=== PATIENT | female | born 1990 | race Caucasian/White ===

== ENCOUNTER 2020-02-16 19:00 | Emergency (ER) | payer OTHER, SELFPAY ==
[2020-02-16 19:03] VITALS: BP 121/70; PULSE 89; RESP 16; TEMP 37; O2SAT 100
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
[2020-02-16] MEDS: TETANUS,DIPHTHERIA,AC PERTUSSIS ADULT (0.5 ML) BOOSTRIX IM (20:35)
== END 2020-02-16 20:36 | disposition home or self-care (01) ==
PROVIDERS: Emergency Provider Emergency Medicine; PCP Advanced Practice Midwife
DX: T25.012A Burn of unspecified degree of left ankle, initial encounter (principal); X16.XXXA Contact with hot heating appliances, radiators and pipes, initial encounter; Z23 Encounter for immunization
CPT/HCPCS: 90471; 90715; 99283

== ENCOUNTER 2020-02-20 10:48 | Outpatient (CLI) | payer OTHER, SELFPAY ==
[2020-02-20 14:48] LABS: Blood Urea Nitrogen 10 mg/dL (7-17); Calcium 8.8 mg/dL (8.4-10.2); Carbon Dioxide 25 mmol/L (22-30); Chloride 102 mmol/L (98-107); Estimated Glomerular Filt Rate > 60; Glucose 93 mg/dL (65-105); Potassium 3.9 mmol/L (3.4-5.0); Sodium 137 mmol/L (137-145)
== END 2020-02-20 10:49 ==
LOC: ANHSURGERY 08-04 10:48
PROVIDERS: Anesthesiology; PCP Advanced Practice Midwife; Visit Provider Plastic Surgery
DX: Z01.812 Encounter for preprocedural laboratory examination (principal); Z51.81 Encounter for therapeutic drug level monitoring; Z79.899 Other long term (current) drug therapy
CPT/HCPCS: 36415; 80048

== ENCOUNTER 2020-02-24 00:59 | Outpatient (CLI) | payer OTHER, SELFPAY ==
[2020-02-24 19:08] LABS: SARS-CoV-2 RNA PCR Negative
== END 2020-02-24 01:00 | disposition home or self-care (01) ==
LOC: ANHCOVIDDT 01:00
PROVIDERS: PCP Advanced Practice Midwife; Visit Provider Plastic Surgery
DX: Z01.812 Encounter for preprocedural laboratory examination (principal); Z11.59 Encounter for screening for other viral diseases
CPT/HCPCS: 87635; C9803; U0003

== ENCOUNTER 2020-02-26 01:11 | Day surgery (SDC) | payer OTHER, SELFPAY ==
[2020-02-19 10:40] VITALS: BMI 29.7
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
--- NOTE | 2020-02-26 07:15 | WPDHPUPDATE1 ---
History and Physical Update Update Date/Time: 02/26/20 07:15 History and Physical has been reviewed, including an updated exam of the patient. There are NO changes in the patient's condition. Risks, benefits, and alternatives have been discussed and questions answered. Patient agrees to proceed with procedure.
[2020-02-26 10:00] VITALS: BP 121/54; PULSE 78; RESP 16; TEMP 36.7; O2SAT 99
[2020-02-26] MEDS: LACTATED RINGERS 1,000 ML 30 ML IV CONT (10:25)
--- NOTE | 2020-02-26 10:42 | WPDANESEPPF ---
Anes - Initial Pre Proc Eval Procedure: Operation Date: 02/26/20 11:30 Proposed Procedures p Burn Wound Debridement, Full Thickness Skin Graft Right Leg - Jovan Magana MD Date/Time: 02/26/20 10:42 Surgeon: Jovan Magana MD Pre Op Diagnosis: Burn Wound Right Leg Patient Data Age: 29 Gender: F Height: 5 ft 7 in Weight: 92.4 kg Last Vital Signs Temp 36.7 C 02/26/20 10:00 Pulse 78 02/26/20 10:00 Resp 16 02/26/20 10:00 BP 121/54 L 02/26/20 10:00 Pulse Ox 99 02/26/20 10:00 Allergies Allergy/AdvReac Type Severity Reaction Status Date / Time Penicillins Allergy Severe Swelling Verified 02/26/20 10:06 hydrocodone AdvReac Mild SWEATING/N/ Verified 02/26/20 10:06 V Home Medications Medication Instructions Recorded Confirmed Type cephalexin 500 mg PO Q6H 02/16/20 02/26/20 History doxycycline hyclate 100 mg PO Q12H 10 Days #20 cap 02/16/20 02/26/20 Rx silver sulfadiazine [Silvadene] 1 applic TOPICAL BID #1000 gm 02/16/20 02/26/20 Rx albuterol sulfate [ProAir HFA] 1 inh INHALATION QID PRN 02/19/20 02/26/20 History spironolactone 100 mg PO DAILY 02/19/20 02/26/20 History Patient hx anesthesia problems: none Family hx anesthesia problems: none PMFSH Past Medical History Medical History (Updated 02/26/20 @ 10:43 by Neptali Sanchez MD) Asthma Obesity Surgical History Surgical History (Updated 02/26/20 @ 10:43 by Neptali Sanchez MD) History of section Family History Family History Grandparent Carcinoma of colon Mother Family history of malignant neoplasm of breast in first degree relative Other Diabetes mellitus Social History Social History Smoking status: Never smoker Alcohol intake: current Drinks per week: 1 Gender identity (if verbalized by the patient): Female Spiritual care concerns: No Anes - Eval Final PreProcedure Day of Procedure 02/26/20 10:42 Patient weight: obese Heart: regular rate and rhythm Lungs: clear to auscultation Airway: Mallampati scale class 1 Neurological: alert and oriented Last oral intake: >/= 8 hours ASA classification: II Emergent: no Anesthetic plan: proceed Anesthesia type and monitoring: general LMA and standard monitoring Informed Consent: The patient's anesthetic plan and its attendant risks and benefits were discussed with the patient/family/POA. Questions were solicited and answers provided to the satisfaction of the patient/family/POA.
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
--- NOTE | 2020-02-26 11:06 | WPDHPUPDATE1 ---
History and Physical Update Update Date/Time: 02/26/20 11:06 History and Physical has been reviewed, including an updated exam of the patient. There are NO changes in the patient's condition. Risks, benefits, and alternatives have been discussed and questions answered. Patient agrees to proceed with procedure.
== END 2020-02-26 11:28 | disposition home or self-care (01) ==
PROVIDERS: PCP Advanced Practice Midwife; Visit Provider Plastic Surgery
DX: T24.301A Burn of third degree of unspecified site of right lower limb, except ankle and foot, initial encounter (principal); X18.XXXA Contact with other hot metals, initial encounter; Z53.8 Procedure and treatment not carried out for other reasons
CPT/HCPCS: A9270; J0171; J7120

== ENCOUNTER → 2021-03-22 01:59 | Outpatient (CLI) | payer OTHER, SELFPAY ==
[2021-03-22 17:39] LABS: SARS-CoV-2 RNA PCR Negative
== END ==
PROVIDERS: PCP Advanced Practice Midwife; Visit Provider Obstetrics & Gynecology
DX: Z01.812 Encounter for preprocedural laboratory examination (principal); Z20.822 Contact with and (suspected) exposure to COVID-19
CPT/HCPCS: C9803; U0003; U0005

== ENCOUNTER 2021-03-25 01:04 | Day surgery (SDC) | payer OTHER, SELFPAY ==
[2021-03-21 15:27] VITALS: BMI 31.7
[2021-03-25] VITALS (9 sets, daily range): BP systolic 99–136; BP diastolic 50–69; PULSE 62–84; RESP 12–20; TEMP 36.6–36.8; O2SAT 96–99; BMI 32.9
[2021-03-25] MEDS: LACTATED RINGERS 1,000 ML 30 ML IV CONT ×3 (11:30→17:03)
[2021-03-25] MEDS: ACETAMINOPHEN 500 MG TABLET 1000 MG PO (11:31)
[2021-03-25] MEDS: KETOROLAC 15 MG/ML VIAL (*BKC) IV PUSH (11:32)
--- NOTE | 2021-03-25 12:00 | WPDANESEPPF ---
Anes - Initial Pre Proc Eval Procedure: Operation Date: 03/25/21 13:00 Proposed Procedures p Diagnostic Laparoscopy, Bilateral Laparoscopic Salpingectomy, and Hysteroscopy with Endometrial Ablation - Hair Edwards MD Date/Time: 03/25/21 12:00 Surgeon: Hair Edwards MD Pre Op Diagnosis: sterilization Patient Data Age: 30 Gender: F Height: 1.7 m Weight: 95.3 kg Allergies Allergy/AdvReac Type Severity Reaction Status Date / Time Penicillins Allergy Severe Swelling Verified 03/25/21 11:15 THROAT, HIVES hydrocodone AdvReac Mild SWEATING/N/ Verified 03/25/21 11:15 V Home Medications Medication Instructions Recorded Confirmed Type doxycycline hyclate 100 mg PO Q12H 10 Days #20 cap 02/16/20 02/26/20 Rx albuterol sulfate [ProAir HFA] 1 inh INHALATION QID PRN 02/19/20 02/26/20 History Patient hx anesthesia problems: none Family hx anesthesia problems: none PMFSH Past Medical History Medical History (Updated 02/26/20 @ 10:43 by Neptali Sanchez MD) Asthma Obesity Surgical History Surgical History (Updated 02/26/20 @ 10:43 by Neptali Sanchez MD) History of section Family History Family History Grandparent Carcinoma of colon Mother Family history of malignant neoplasm of breast in first degree relative Other Diabetes mellitus Social History Social History Smoking status: Never smoker Alcohol intake: current Drinks per week: 1 Living arrangements: alone Gender identity (if verbalized by the patient): Female Spiritual care concerns: No Anes - Eval Final PreProcedure Day of Procedure 03/25/21 12:00 Patient weight: obese Heart: regular rate and rhythm Lungs: clear to auscultation and normal air movement Airway: Mallampati scale class II Neurological: alert and oriented Last oral intake: >/= 8 hours ASA classification: II Emergent: no Anesthetic plan: proceed Anesthesia type and monitoring: general ETT and standard monitoring Informed Consent: The patient's anesthetic plan and its attendant risks and benefits were discussed with the patient/family/POA. Questions were solicited and answers provided to the satisfaction of the patient/family/POA.
--- NOTE | 2021-03-25 12:07 | WPDHPUPDATE1 ---
History and Physical Update Update Date/Time: 03/25/21 12:07 History and Physical has been reviewed, including an updated exam of the patient. There are NO changes in the patient's condition. Risks, benefits, and alternatives have been discussed and questions answered. Patient agrees to proceed with procedure.
[2021-03-25] MEDS: ONDANSETRON INJ 4 MG/2 ML VIAL IV PUSH (15:41)
[2021-03-25] MEDS: fentaNYL CITRATE INJ (*CRX) 100 MCG/2 ML VIAL 25 MCG IV PUSH ×4 (15:47→16:22)
--- NOTE | 2021-03-25 16:21 | W.PM.PROC2 ---
Procedure Note - Detailed Date of Procedure 03/25/21 Pre-op Diagnosis sterilization, menorrhagia, pelvic pain Post-op Diagnosis same (Endometriosis) Procedure Performed Diagnostic laparoscopy, radical resection endometriosis and pelvic peritoneum, laparoscopic bilateral salpingectomy, endometrial ablation with hysteroscopy. Surgeon Hair Edwards MD Anesthesia general Indications Pelvic pain Findings Endometriosis lesions throughout the posterior cul-de-sac, normal-appearing tubes and ovaries. Normal-appearing vulva vagina and cervix. Normal-appearing endometrium. Description of Procedure The patient was taken to the operating room. She was prepped and draped in the dorsal lithotomy position after induction general anesthesia. A 5 mm incision was made with a scalpel on the abdominal skin in the left upper quadrant of the abdomen. A 5 mm trocar was inserted into the intra-abdominal cavity under direct visualization the scope. In the same fashion a 5 mm left lower quadrant trocar was inserted and a 5 mm infraumbilical trocar was inserted. The bilateral ovaries were suspended to the anterior pelvic wall laterally. This was done with a Car-Demetrio suture Passer that was inserted in the a right lower quadrants on each side with an 0 Vicryl stitch in the grasper. The needle was passed through the ovary, the suture was released, the sutures grasped on the other side of the ovary and drawn up through the abdominal wall to the outside and held in place with a hemostat. A ANDREA manipulator is placed in the intrauterine cavity. This was done with the speculum and tenaculum. The bulb was inflated with air. The peritoneum in the posterior cul-de-sac was removed. The symptoms sharp and blunt dissection and cautery. The ureters identified and ureterolysis was performed elevated down for to the uterine arteries from the pelvic brim. All the peritoneum in the posterior cul-de-sac was removed bilaterally. The fallopian tubes were removed using LigaSure cautery. The paratubal tissue at the site of the ovary was cauterized transected with LigaSure. In a stepwise fashion around the ovary to the uterine cornua the mesosalpinx was cauterized transected with LigaSure cautery and that the cornu of the tube was transected and cauterized. Was taken at the left lower quadrant trocar site. This was performed bilaterally in an identical fashion. The pelvis was irrigated. The pneumoperitoneum was reduced. The trocars were removed. Skin was closed with subcuticular 4 micro. The patient's incisions were covered with Dermabond. She was taken recovery room in stable condition. Sponge lap and needle counts were correct x2. Speculum placed in vagina. Cervix grasped with a tenaculum. The cervix dilated to about 8 mm. The hysteroscope was inserted the intrauterine cavity. The above findings were noted. The cavity was measured using the hysteroscope and the uterine sound. The length of the uterine cavity was entered into the Jessie handpiece. The Jessie device was inserted the intrauterine cavity and expanded. The balloon cuff was blown up. There was an adequate seal during the safety check of the device. The safety and energy cycles with initiated. They were completed in just a few minutes. The device was withdrawn after deflating the balloon. The hysteroscope was inserted and a well desiccated endometrium was observed. The hysteroscope was removed. The tenaculum was removed. The speculum was removed. The patient tolerated both procedures well. She is taking cover stable condition. Sponge lap needle counts were correct x2. Estimated Blood Loss 100 Drains No Packing No Pathology yes Complications No immediate complications Condition stable Disposition same day
[2021-03-25] MEDS: diphenhydrAMINE HCl INJ 50 MG/ML VIAL 12.5 MG IV PUSH ×2 (17:04→17:49)
[2021-03-25] MEDS: oxyCODONE HCL (*CRX) 5 MG TAB IR PO (17:44)
== END 2021-03-25 18:00 | disposition home or self-care (01) ==
PROVIDERS: PCP Advanced Practice Midwife; Visit Provider Obstetrics & Gynecology
PROC: 0UDB8ZZ Extraction of Endometrium, Via Natural or Artificial Opening Endoscopic (ICD-10-PCS; CPT 58558; principal; 2021-03-25 13:00)
DX: Z30.2 Encounter for sterilization (principal); K66.8 Other specified disorders of peritoneum; N80.3 Endometriosis of pelvic peritoneum; N94.6 Dysmenorrhea, unspecified; N94.10 Unspecified dyspareunia; N92.0 Excessive and frequent menstruation with regular cycle; J45.909 Unspecified asthma, uncomplicated; E66.9 Obesity, unspecified; Z68.32 Body mass index [BMI] 32.0-32.9, adult; Z79.51 Long term (current) use of inhaled steroids; R10.2 Pelvic and perineal pain
CPT/HCPCS: 58563; 58661; 88302; 88305; A9270; J0330; J1100; J1200; J1885; J2250; J2370; J2405; J2704; J2710; J3010; J7120; Q9968

== ENCOUNTER 2021-03-26 10:14 | Observation (INO) | payer OTHER, SELFPAY ==
--- NOTE | ~2021-03-26 | CT_ITS ---
EXAMINATION: CT abdomen pelvis wo con DATE: 03/26/2021 12:14 INDICATION: Generalized abdominal pain status post tubal ligation and endometrial ablation yesterday TECHNIQUE: Computed tomography (CT) of the abdomen and pelvis was performed without intravenous contr ast. The dose-length product (DLP) was 816.85 mGy-cm. Automated exposure control and iterative recons truction technique were employed. COMPARISON: None FINDINGS: The lung bases are clear. The heart size is normal. There is a moderate volume of free intr aperitoneal gas as well as gas in the left abdominal wall and pelvis, consistent with yesterday's joan gical procedure. The liver, spleen, pancreas, gallbladder, and adrenal glands are normal. The kidneys are unremarkable. No pathologically enlarged abdominal or pelvic lymph nodes are identified. There a re no dilated loops of bowel. No a tiny volume of low-density fluid in the cul-de-sac is also consist ent with recent surgery. No pelvic hematoma is identified. There is mild lumbar spondylosis. IMPRESSION: 1. Free intraperitoneal gas as well as gas in the left abdominal wall and pelvis consistent with surg jewel yesterday. Reviewed, dictated and finalized at location A. IMPRESSION: 1. Free intraperitoneal gas as well as gas in the left abdominal wall and pelvi s consistent with surgery yesterday.
[2021-03-26 10:19] VITALS: BP 139/108; PULSE 92; RESP 20; TEMP 36; O2SAT 100
[2021-03-26] MEDS: fentaNYL CITRATE INJ (*CRX) 100 MCG/2 ML VIAL 50 MCG IV PUSH ×2 (11:21→12:14)
[2021-03-26 11:38] LABS: Basophils Percent Auto 0.2 % (0.2-1.2); Eosinophils Percent Auto 0.2 % (0-4.4); Hemoglobin 14.1 g/dL (12.0-15.0); Immature Granulocyte Absolute 0.09 K/mm3 (0.00-0.031); Immature Granulocyte Percent A 0.5 % (0-0.5); Lymphocytes Absolute Auto 3.53 K/mm3 (0.9-3.2); Lymphocytes Percent Auto 18.8 % (18.3-44.2); Mean Corpuscular HGB Conc 32.8 g/dl (32-36); Mean Corpuscular Hemoglobin 29.4 pg (26-34); Mean Corpuscular Volume 89.8 fl (80-100); Mean Platelet Volume 10.7 fl (7.4-10.4); Monocytes Absolute Auto 1.5 K/mm3 (0.1-0.6); Monocytes Percent Auto 8.1 % (2.6-8.5); Neutrophils Absolute Auto 13.6 K/mm3 (1.3-6.7); Neutrophils Percent Auto 72.2 % (45.5-73.1); Platelet Count Result 397 k/mm3 (150-375); Red Blood Count 4.79 M/mm3 (4.2-5.4); Red Cell Distribution Width 12.2 % (11.5-14.5); White Blood Count 18.8 K/mm3 (4.5-10.0)
[2021-03-26 11:51] VITALS: TEMP 36
[2021-03-26 11:56] LABS: Albumin Level 4.4 g/dL (3.5-5.1); Carbon Dioxide 25 mmol/L (22-30); Estimated CRCL calculation 114 ml/min; Estimated Glomerular Filt Rate > 60
[2021-03-26 12:02] LABS: Add Urine Microscopic? YES; Appearance Urine Clear (Clear); Bilirubin Urine Negative (Negative); Blood Urine 1+ (Negative); Color Urine Yellow (Yellow); Glucose Urine UA Negative (Negative); Ketones Urine Trace mg/dL (Negative); Leukocyte Esterase Ur Negative LEU/UL (Negative); Nitrate Urine Negative (Negative); Protein Urine 1+ mg/dL (Negative); Specific Grav Ur 1.021 (1.001-1.035); Urobilinogen Urine Negative mg/dL (<2.0)
[2021-03-26 12:07] LABS: Mucus Urine Few /lpf; Squamous Epithelial Cell Urine Occasional /hpf (Few); Transitional Epi Cells Urine Rare /hpf (None Seen)
[2021-03-26 12:19] VITALS: BP 111/56; PULSE 64; RESP 18; O2SAT 96
--- NOTE | 2021-03-26 12:24 | PM.IMHP ---
H&P: HPI History of Present Illness Date/Time: 03/26/21 12:24This patient is a 30-year-old female presents for postoperative pain. She is postop day 1 from a diagnostic laparoscopy with extensive resection of pelvic peritoneum, endometrial ablation, bilateral salpingectomy. She has right upper quadrant pain that is radiating to her shoulder. She was sent to the emergency department. She was observed there. She is given pain medication. Her pain is improved. She is having difficulty breathing initially. She is no longer short of breath. She denies any nausea, vomiting, fevers, chills. She Reports good urine output. She is passing flatus. Chief Complaint: abdominal pain Review of Systems Constitutional: Constitutional: Reports no additional constitutional complaints, Denies fatigue, Denies headache(s), Denies lethargy and Denies weakness Eyes: Eyes: Reports no additional eye complaints, Denies blurry vision and Denies photophobia ENT: Reports as per HPI, Denies headache(s) and Denies neck pain Cardiovascular: Cardiovascular: Denies chest pain, Denies diaphoresis, Denies leg edema, Denies palpitations and Denies dyspnea Respiratory: Respiratory: Denies hemoptysis, Denies dyspnea and Denies wheezing Gastrointestinal: Gastrointestinal: Denies abdominal pain, Denies melena, Denies bloating, Denies hematochezia, Denies nausea and Denies vomiting Genitourinary: Genitourinary: Reports no additional female genitourinary complaints Musculoskeletal: Musculoskeletal: Denies joint swelling, Denies neck pain, Denies numbness and Denies stiffness Neurologic: Denies Abnormal speech present, Denies confusion, Denies headache(s), Denies numbness and Denies weakness Psychiatric: Psychiatric: Denies anxiety, Denies confusion, Denies depression, Denies homicidal ideation and Denies suicidal ideation Endocrine: Endocrine: Denies fatigue and Denies palpitations Allergic/Immunologic: Allergic/Immunologic: Denies wheezing PMFSH Past Medical History Medical History (Updated 03/25/21 @ 16:20 by Hair Edwards MD) Asthma Obesity Surgical History Surgical History (Updated 02/26/20 @ 10:43 by Neptali Sanchez MD) History of section Family History Family History Grandparent Carcinoma of colon Mother Family history of malignant neoplasm of breast in first degree relative Other Diabetes mellitus Social History Social History Smoking status: Never smoker Alcohol intake: current Drinks per week: 1 Gender identity (if verbalized by the patient): Female Spiritual care concerns: No Meds Home Medications and Allergies Home Medications Medication Instructions Recorded Confirmed Type doxycycline hyclate 100 mg PO Q12H 10 Days #20 cap 02/16/20 02/26/20 Rx albuterol sulfate [ProAir HFA] 1 inh INHALATION QID PRN 02/19/20 02/26/20 History hydrocodone-acetaminophen 1 - 2 tablet PO Q4H PRN #25 tablet 03/25/21 Rx Allergies Allergy/AdvReac Type Severity Reaction Status Date / Time Penicillins Allergy Severe Swelling Verified 03/26/21 10:27 THROAT, HIVES hydrocodone AdvReac Mild SWEATING/N/ Verified 03/26/21 10:27 V Vital Signs Vital Signs - 24 hr 03/26/21 10:19 03/26/21 11:51 03/26/21 12:19 Temperature 96.8 F L 96.8 F L Pulse Rate 92 64 Respiratory Rate 20 18 Blood Pressure 139/108 H 111/56 L Pulse Oximetry 100 96 Exam Const: General: healthy appearing, comfortable and no acute distress; No confusion Orientation/consciousness: No confusion Eyes: Direct Ophthalmoscopy: No photophobia Resp: Auscultation: clear to auscultation bilaterally, no rales, no rhonchi and no wheezes Cardio: Rate: regular rate Heart sounds: no click, no murmurs and no rubs GI: Inspection: non-distended GI Palp: No abdominal tenderness Auscultation: normal bowel sounds Neuro: Gen
[2021-03-26 12:28] LABS: Alanine Aminotransferase 19 U/L (4-35); Alkaline Phosphatase 75 U/L (38-126); Anion Gap 10 mmol/L (8-16); Aspartate Amino Transferase 36 U/L (14-36); Bilirubin,Total 0.7 mg/dL (0.2-1.3); Blood Urea Nitrogen 10 mg/dL (7-17); Calcium 9.3 mg/dL (8.4-10.2); Chloride 105 mmol/L (98-107); Glucose 109 mg/dL (65-110); Lipase 39 U/L (23-300); Potassium 3.6 mmol/L (3.4-5.0); Sodium 140 mmol/L (137-145)
--- NOTE | 2021-03-26 12:28 | ED.GENADULT ---
HPI - General Adult General Chief complaint: Unspecified Stated complaint: post op pain Time Seen by Provider: 03/26/21 10:25 Source: patient Mode of arrival: ambulatory Limitations: no limitations History of Present Illness HPI narrative: Patient presents for evaluation of pain in the right clavicle, chest, abdomen since this morning. Pain is constant, described as pressure and stabbing, 8 out of 10 in severity. Pain is worse with deep inspiration. She denies any cough. She underwent diagnostic laparoscopy, radical resection endometriosis and pelvic peritoneum, laparoscopic bilateral salpingectomy, endometrial ablation with hysteroscopy per Dr Edwards yesterday. She states she has had some problems with abnormal uterine bleeding and abdominal pain 2/2 endometriosis for some time. Surgical history also positive for c section. She states she has noted some vaginal spotting since yesterday only going through a few pads since that time. Denies any vaginal discharge. Related Data Home Medications Medication Instructions Recorded Confirmed albuterol sulfate [ProAir HFA] 1 inh INHALATION QID PRN 02/19/20 02/26/20 Allergies Allergy/AdvReac Type Severity Reaction Status Date / Time Penicillins Allergy Severe Swelling Verified 03/26/21 10:27 THROAT, HIVES hydrocodone AdvReac Mild SWEATING/N/ Verified 03/26/21 10:27 V Review of Systems Review of Systems: CONSTITUTIONAL: Denies fever, chills, or sweats. EYES: Denies visual changes, redness, or discharge. ENT: Denies rhinorrhea, congestion, sore throat, or otalgia. CARDIOVASCULAR:Reports pain in right clavicle. Denies palpitations or edema. RESPIRATORY: Denies cough or dyspnea. GASTROINTESTINAL: Reports abdominal pain. Denies nausea, vomiting, or diarrhea. GENITOURINARY: Reports spotting. Denies dysuria or hematuria. SKIN: Denies rash or itching. MUSCULOSKELETAL: Reports pain in the right clavicle. Denies back pain or joint pain NEUROLOGIC: Denies headache, numbness, dizziness, or weakness. PSYCHIATRIC: Denies anxiety or depression. [facility] Past Medical History Medical History (Updated 03/26/21 @ 13:49 by David Velasquez, MADHAVI, ALIZA) Asthma Endometriosis Obesity Surgical History Surgical History History of section History of endometrial ablation History of hysterectomy Status post bilateral salpingectomy Family History Family History Grandparent Carcinoma of colon Mother Family history of malignant neoplasm of breast in first degree relative Other Diabetes mellitus Social History Social History Smoking status: Never smoker Alcohol intake: current Drinks per week: 1 Gender identity (if verbalized by the patient): Female Spiritual care concerns: No Exam Narrative: GENERAL: Well-appearing, well-nourished, and in no acute distress. HEAD: Normocephalic, atraumatic. EYES: PERRLA and EOMI. ENT: Nares clear, no rhinorrhea or epistaxis. Mucous membranes moist. Oropharynx without tonsillar hypertrophy exudate or other lesions. Bilateral TMs pearly reilly nonbulging NECK: Supple. No adenopathy or masses. No carotid bruits or JVD CHEST: Clear to auscultation. No respiratory distress. No wheezes rales or rhonchi HEART: Regular rate and rhythm. No murmur heard. Normal peripheral pulses. ABDOMEN: Soft, diffuse nonspecific abdominal tenderness without rebound. Normal active bowel sounds. EXTREMITIES: Normal range of motion. No edema. SKIN: Lap surgical sites to the abdomen are approximated with Dermabond and free of erythema and drainage. Warm, dry, no rash. NEURO: No focal deficits. Alert and oriented x3. PSYCH: Normal mood and affect. Course Course Emergency Course: This is a 30-year-old female who presented with complaints of abdominal,
[2021-03-26 13:16] VITALS: BP 97/72; PULSE 64; RESP 18; O2SAT 95
[2021-03-26 13:35] VITALS: BP 120/76; PULSE 64; RESP 18; TEMP 36.3; O2SAT 100
[2021-03-26] MEDS: KETOROLAC 30 MG/ML VIAL (*BKC) IV PUSH (13:45)
[2021-03-26] MEDS: SIMETHICONE 80 MG TAB.CHEW ×2 (13:45→19:15)
[2021-03-26] MEDS: diphenhydrAMINE HCl INJ 50 MG/ML VIAL 25 MG IV PUSH (16:20)
[2021-03-26] MEDS: HYDROcodone/acetaminophen (*CRX) 10-325 MG TABLET 1 TAB PO ×2 (16:21→20:20)
[2021-03-26] MEDS: SODIUM CHLORIDE 0.9% IV 1,000 ML 125 ML (16:53)
--- NOTE | 2021-03-26 16:54 | PC.NURSE ---
[address] Lynn related to Hydrocodone allergy listed on chart despite the patient saying that she is unsure of a hydrocodone allergy. She is sure of a codeine allergy, it causes her to be itchy, have rash and swelling. Dr. Lynn gave ok to give [place] since this was the med sent home with her after surgery.
[2021-03-26 19:15] VITALS: BP 119/73; PULSE 67; RESP 16; TEMP 36.4
[2021-03-26] MEDS: IBUPROFEN 600 MG TABLET PO (20:20)
[2021-03-27] MEDS: HYDROcodone/acetaminophen (*CRX) 10-325 MG TABLET 1 TAB PO ×3 (00:15→10:27)
[2021-03-27] MEDS: SIMETHICONE 80 MG TAB.CHEW PO ×2 (00:15→07:05)
[2021-03-27] MEDS: diphenhydrAMINE HCl INJ 50 MG/ML VIAL 25 MG IV PUSH (00:15)
[2021-03-27] MEDS: IBUPROFEN 600 MG TABLET PO (07:06)
[2021-03-27] MEDS: diphenhydrAMINE HCl CAP 25 MG CAPSULE PO (07:25)
--- NOTE | 2021-03-27 08:39 | PM.GYNPNOP ---
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 E/A/V. 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 - PN: Obj Data Vital Signs Vital Signs: Vital Signs - 24 hr 03/26/21 10:19 03/26/21 11:51 03/26/21 12:19 Temperature 96.8 F L 96.8 F L Pulse Rate 92 64 Respiratory Rate 20 18 Blood Pressure 139/108 H 111/56 L Pulse Oximetry 100 96 03/26/21 13:16 03/26/21 13:35 03/26/21 19:15 Temperature 97.4 F L 97.6 F Pulse Rate 64 64 67 Respiratory Rate 18 18 16 Blood Pressure 97/72 L 120/76 119/73 Pulse Oximetry 95 100 Meds/Results Medications: Active Medications Generic Name Dose Route Start Last Admin Trade Name Freq PRN Reason Stop Dose Admin Hydrocodone Bitart/Acetaminophen 1 tab 03/26/21 13:34 03/27/21 07:05 Hydrocodone/Acetaminophen (*Crx) 10-325 Mg Tablet PO 1 tab Q3H PRN Administration Pain Rated 6 or Greater Diphenhydramine HCl 25 mg 03/26/21 16:05 03/27/21 00:15 Diphenhydramine Hcl Inj 50 Mg/Ml Vial IV PUSH 25 mg Q4H PRN Administration Itching Diphenhydramine HCl 25 mg 03/27/21 07:08 03/27/21 07:25 Diphenhydramine Hcl Cap 25 Mg Capsule PO 25 mg Q6H PRN Administration Itching Ibuprofen 600 mg 03/26/21 13:34 03/27/21 07:06 Ibuprofen 600 Mg Tablet PO 600 mg Q6H PRN Administration Cramping Ketorolac Tromethamine 30 mg 03/26/21 13:34 08/14/21 13:45 Ketorolac 30 Mg/Ml Vial (*Bkc) IV PUSH 03/31/21 13:35 30 mg Q6H PRN Administration Pain Rated 4-6 Morphine Sulfate 4 mg 03/26/21 13:34 Morphine Sulfate (*Crx) 4 Mg/Ml Inj IV PUSH Q1H PRN Pain Rated 7-10 Ondansetron HCl 4 mg 03/26/21 13:34 Ondansetron Inj 4 Mg/2 Ml Vial IV PUSH Q6H PRN Nausea Simethicone 80 mg 03/26/21 19:18 03/27/21 07:05 Simethicone 80 Mg Tab.Chew PO 80 mg Q2HR PRN Administration Gas Discomfort Radiology Results: ITS Impressions Abdomen/Pelvis CT 03/26/21 12:29 IMPRESSION: 1. Free intraperitoneal gas as well as gas in the left abdominal wall and pelvis consistent with surgery yesterday. Labs CBC & Chem 7: 03/26/21 11:27 03/26/21 11:27 Labs: Laboratory Results - last 24 hr 03/26/21 03/26/21 03/26/21 11:26 11:27 11:27 WBC 18.8 H RBC 4.79 Hgb 14.1 Hct 43.0 MCV 89.8 MCH 29.4 MCHC 32.8 RDW 12.2 Plt Count 397 H MPV 10.7 H Immature Gran % (Auto) 0.5 Neut % (Auto) 72.2 Lymph % (Auto) 18.8 Anderson % (Auto) 8.1 Eos % (Auto) 0.2 Baso % (Auto) 0.2 Lymph # (Auto) 3.53 H Anderson # (Auto) 1.5 H Eos # (Auto) 0.0 Baso # (Auto) 0.0 Abs Immat Gran (auto) 0.09 H Absolute Neuts (auto) 13.6 H Absolute Nucleated RBC 0.0 Nucleated RBC % 0.0 Sodium 140 Potassium 3.6 Chloride 105 Carbon Dioxide 25 Anion Gap 10 BUN 10 Creatinine 0.80 Estim Creat Clear Calc 114 Estimated GFR > 60 Glucose 109 Calcium 9.3 Total Bilirubin 0.7 AST 36 ALT 19 Alkaline Phosphatase 75 Total Protein 8.0 Albumin 4.4 Lipase 39 Urine Color Yellow Urine Appearance Clear Urine pH 6.0 Ur Specific [place] 1.021 Urine Protein 1+ H Urine Glucose (UA) Negative Urine Ketones Trace Ur Blood (Man) 1+ H Urine Nitrate Negative Urine Bilirubin Neg
== END 2021-03-27 11:00 | disposition home or self-care (01) ==
LOC: ANHED 10:37 → ANHOB2 13:49
PROVIDERS: Admitting Provider Obstetrics & Gynecology; Emergency Provider Nurse Practitioner; PCP Obstetrics & Gynecology; Visit Provider Obstetrics & Gynecology
DX: G89.18 Other acute postprocedural pain (principal); R10.11 Right upper quadrant pain; J45.909 Unspecified asthma, uncomplicated; Z79.51 Long term (current) use of inhaled steroids; E66.9 Obesity, unspecified; Z68.39 Body mass index [BMI] 39.0-39.9, adult
CPT/HCPCS: 36415; 74176; 80053; 81001; 81025; 83690; 85025; 87086; 87088; 96374; 96375; 96376; 99285; A9270; G0378; G0379; J1200; J1885; J3010; J7030

== ENCOUNTER 2021-04-13 08:22 | Outpatient (CLI) | payer OTHER, SELFPAY ==
--- NOTE | ~2021-04-13 | CT_ITS ---
EXAMINATION: CT abdomen pelvis w con INDICATION: Abdominal pain, recent tubal ligation and endometrial ablation TECHNIQUE: Computed tomographic images of the abdomen and pelvis were obtained after the administrati on of 100 cc of Omnipaque 350 intravenous contrast. The dose-length product (DLP) was 926.13 mGy-cm. Automated exposure control and iterative reconstruction technique were employed. COMPARISON: 03/26/2021 FINDINGS: The lung bases are clear. The heart size is normal. The liver, spleen, pancreas, gallbladde r, and adrenal glands are normal. The kidneys are unremarkable. No pathologically enlarged abdominal or pelvic lymph nodes are identified. There is no free intraperitoneal gas or evidence of bowel obstr uction. Previously described postoperative gas in the pelvis and abdominal wall has resolved. There i s fluid in the endometrial canal. A 4.7 cm cyst is present in the left adnexa. There appears to be a small amount of fluid in the right fallopian tube. There is a tiny fat-containing umbilical hernia. IMPRESSION: 1. Possible small amount of fluid in the right fallopian tube. Consider pelvic ultrasound if symptoms persist. Reviewed, dictated and finalized at location A.
== END 2021-04-13 08:23 | disposition home or self-care (01) ==
LOC: ANHIMG 08:26
PROVIDERS: PCP Obstetrics & Gynecology; Visit Provider Obstetrics & Gynecology
DX: R10.12 Left upper quadrant pain (principal); N85.8 Other specified noninflammatory disorders of uterus
CPT/HCPCS: 74177; Q9967